=== PATIENT | female | born 2000 | race Caucasian/White ===

== ENCOUNTER 2021-07-25 14:05 | Emergency (ER) | payer BC, SELFPAY ==
[2021-07-25 14:05] VITALS: BP 136/89; PULSE 97; RESP 18; TEMP 36.5; O2SAT 100
--- NOTE | 2021-07-25 14:34 | ED.URI ---
HPI - URI/Sore Throat General Chief Complaint: Upper Respiratory Infection Stated Complaint: Congestion Time Seen by Provider: 07/25/21 14:22 Source: patient and RN notes reviewed Mode of arrival: ambulatory Limitations: no limitations History of Present Illness HPI Narrative: Patient presents today complaining of severe nasal congestion. Patient was diagnosed with COVID-19 on 07/06/2022. Reports her symptoms had improved for a while, but over the last several days her nasal congestion had significantly worsened. Associated symptoms include postnasal drip and nasal drainage. She has been taking Coricidin HBP without relief. MD elicited complaint: nasal congestion and sinus pain Related Data Home Medications Medication Instructions Recorded Confirmed L norgest/e.estradiol-e.estrad 0.15 ea PO DAILY 07/25/21 07/25/21 [Simpesse] nitrofurantoin macrocrystal 50 mg PO PRN PRN 07/25/21 07/25/21 Allergies Allergy/AdvReac Type Severity Reaction Status Date / Time No Known Allergies Allergy Verified 05/20/19 14:51 Review of Systems Review of Systems: CONSTITUTIONAL: Denies body aches, fever, chills, or sweats. EYES: Denies visual changes, redness, or discharge. ENT: Denies rhinorrhea, sore throat, or otalgia.+ Nasal congestion, postnasal drip CARDIOVASCULAR: Denies chest pain, palpitations, or edema. RESPIRATORY: Denies cough or dyspnea. GASTROINTESTINAL: Denies abdominal pain, nausea, vomiting, or diarrhea. GENITOURINARY: Denies dysuria or hematuria. SKIN: Denies rash, itching, or wounds. MUSCULOSKELETAL: Denies back pain, joint pain, or myalgia. NEUROLOGIC: Denies headache, numbness, tingling, or weakness. PSYCH: Denies depression or anxiety. [facility] Past Medical History Medical History No pertinent past medical history Social History Social History Smoking status: Never smoker Gender identity (if verbalized by the patient): Female Comments At time of signature, I have reviewed and agree with nursing past medical, surgical, social and family history unless otherwise noted. Please see nursing chart for further information. There is no relevant family history pertinent to the presenting complaint Exam Narrative: GENERAL: Well-appearing, well-nourished, and in no acute distress. HEAD: Normocephalic, atraumatic. EYES: EOMI. No redness or drainage. Conjunctivae normal. ENT: Mucous membranes pink and moist. Nares congested. Swollen nasal turbinates. No rhinorrhea. TMs normal bilaterally. Throat normal. Uvula midline. NECK: Normal AROM. Supple. No lymphadenopathy. CHEST: No respiratory distress. Clear to auscultation. HEART: Regular rate and rhythm. No murmur appreciated. Normal peripheral pulses. EXTREMITIES: Normal range of motion. No edema. SKIN: Warm, dry, no rash. Capillary refill normal. Normal skin turgor. NEURO: No focal deficits. Alert and oriented x3. Gait steady. PSYCH: Normal affect. No signs of depression or anxiety. Course Course Level of Care: Express Care Visit Vital Signs Vital signs: Vital Signs Temperature 97.7 F 07/25/21 14:05 Pulse Rate 97 07/25/21 14:05 Respiratory Rate 18 07/25/21 14:05 Blood Pressure 136/89 07/25/21 14:05 Pulse Oximetry 100 07/25/21 14:05 Temperature 97.7 F 07/25/21 14:05 Pulse Rate 97 07/25/21 14:05 Respiratory Rate 18 07/25/21 14:05 Blood Pressure 136/89 07/25/21 14:05 Pulse Oximetry 100 07/25/21 14:05 MDM - URI/Sore Throat Differential Diagnosis Differential diagnosis: Likely upper respiratory infection, sinusitis and viral infection Critical Care Time Critical Care Time Critical Care Time: No Discharge Plan Discharge Clinical Impression: Sinusitis Qualifiers: Sinusitis location: unspecified location Chronicity: acute Recurrence: non-recurrent Qualified Code(s): J01.90 - Acute sinusi
== END 2021-07-25 14:41 | disposition home or self-care (01) ==
PROVIDERS: Emergency Provider Nurse Practitioner; PCP Family Medicine Adolescent Medicine
DX: J01.90 Acute sinusitis, unspecified (principal); Z86.16 Personal history of COVID-19
CPT/HCPCS: 99213; G0463

== ENCOUNTER → 2023-06-22 13:16 | Outpatient (CLI) | payer OTHER, SELFPAY ==
--- NOTE | ~2023-06-22 | US_ITS ---
US breast RT complete 06/22/2023 13:42 Indication: Palpable right breast abnormality Procedure: Complete right breast ultrasound including all 4 quadrants in the subareolar location Comparison: No prior studies for comparison. Findings: At 10:00, 3 cm from the nipple in the area of palpable concern there is an oval circumscribed hypoech oic mass with parallel orientation, no significant posterior features or internal vascularity. This m ass measures 2 x 1.9 x 0.9 cm with some lobulations. At 12:00 near the areola there is an oval hypoec hoic 5 mm parallel oriented mass without posterior features or internal vascularity. Impression: 1: Right breast masses, most likely benign given their sonographic characteristics and patient age. BI-RADS CATEGORY 3-PROBABLY BENIGN FINDING RECOMMENDATION: 6 month follow-up Limited right breast ultrasound recommended Reviewed, dictated and finalized at location A. PLACEMENT COORDINATOR Impression: 1: Right breast masses, most likely benign given their sonographic characterist ics and patient age. BI-RADS CATEGORY 3-PROBABLY BENIGN FINDING RECOMMENDATION: 6 month follow-up Limited right breast ultrasound recommended
== END ==
PROVIDERS: PCP Nurse Practitioner; Visit Provider Nurse Practitioner
DX: N63.11 Unspecified lump in the right breast, upper outer quadrant (principal)
CPT/HCPCS: 76641

== ENCOUNTER 2023-12-28 09:39 | Outpatient (CLI) | payer OTHER, SELFPAY ==
--- NOTE | ~2023-12-28 | US_ITS ---
US breast RT limited 12/28/2023 09:57 Indication: Six-month follow-up right breast mass. Procedure: High-resolution Limited ultrasound of the right breast Comparison: Ultrasound dated 06/22/2023 Findings: There is a hypoechoic right breast mass at 10:00, 4.5 cm from the nipple which appears slig htly more lobulated and minimally increased in size compared with prior study now measuring 2.2 x 1.8 x 1.0 cm compared with 2 x 1.9 x 0.9 cm on prior examination. At 12:00, 2.5 cm from the nipple there is an oval hypoechoic 5 mm mass which is stable compared with prior exam, likely benign. Impression: 1: Minimal increased size with lobulation and the dominant right breast mass at 10:00, 4.5 cm from th e nipple. BI-RADS CATEGORY 4-SUSPICIOUS ABNORMALITY RECOMMENDATION: Ultrasound-guided right breast biopsy recommended. Reviewed, dictated and finalized at location B. Impression: 1: Minimal increased size with lobulation and the dominant right breast mass at 10:00, 4.5 cm from the nipple. BI-RADS CATEGORY 4-SUSPICIOUS ABNORMALITY RECOMMENDATION: Ultrasound-guided right breast biopsy recommended.
== END 2023-12-28 09:40 ==
LOC: MICIMG 09:40
PROVIDERS: PCP Obstetrics & Gynecology Gynecology; Visit Provider Obstetrics & Gynecology Gynecology
DX: N63.10 Unspecified lump in the right breast, unspecified quadrant (principal); R92.8 Other abnormal and inconclusive findings on diagnostic imaging of breast
CPT/HCPCS: 76642

== ENCOUNTER 2025-03-10 18:06 | Emergency (ER) | payer OTHER, SELFPAY ==
--- OUTSIDE RECORDS SUMMARY | 2023-11-10 09:18 | XMS_ITS | Continuity of Care Document ---
Author Organization [facility] Address [address] [place] [address] Phone Care Team Providers Care Link Trainer Name Role Phone Christine BALLESTEROS, JAYCE, Kirill Unavailable Unavailable Procedures Procedure Date Therapeutic Activities Manual Therapy Therapeutic Activities Manual Therapy PT Evaluation Moderate Complexity Therapeutic Activities Advance Directives Directive Yes / No Effective Date File Name No Information Encounters Encounter Description Practice Location Reason(s) For Visit Diagnoses Date Provider Providers Copied on Encounter [facility], [place], [place], [id number], tel:[phone] [place] No Information [address] [facility], [place], [place], [id number], tel:[phone] [place] No Information 4 Christine Roy. . Referring Provider: Sterling Miguel, [address] [place], [address]. tel:[phone] [facility], [place], [place], [id number], tel:[phone] [place] No Information 4 Christine Roy. . Referring Provider: Sterling Miguel, [address] [place], [address]. tel:[phone] [facility] [address], [place], [place], [id number], [place] tel:[phone] [place] No Information 4 Christine Roy. . Referring Provider: Sterling Miguel, [address] [place], [address]. tel:[phone] Family History Family Member Type Diagnosis Age At Onset No Information Payers Payer name Insurance type Covered green party ID Yi sadler(s) [facility] CI [id number] Social History Type Description Quantity Date Captured Comments Sex Female Smoking Status No Information Chief Complaint And Reason For Visit No Information Reason For Referral Reason For Referral No Information History Of Present Illness Encounter Date Complaint History Of Prese nt Illness No Information Functional Status Date Functional Assessmen t No Information Instructions Date Instruction Additional Infor mation No Information Assessments Type Assessment Date No Information Patient Care Teams Name Effective Dates (start - stop) Status Members No Information
--- OUTSIDE RECORDS SUMMARY | 2025-03-10 18:08 | XMS_ITS | Clinical Summary ---
Author Organization [facility] Address [address] [address] Care Team Providers Care Cable Tester Name Role Phone Roosevelt Guerin MD Primary Care Provider [phone] Source Comments [facility],non-owned Affiliates and Associated Physician Practices is amultiple site organization consisting of ambulatory clinics and hospital sitesin [place] and [place]. This disclosure is being madepursuant to the Care Everywhere program and may not contain all information available regarding this patient. Last updated 18.[facility] Social History Tobacco Use Types Packs/Day Years Used Date Smoking Tobacco: Never Assessed Comments Unknown Sex and Gender Information Value Date Recorded Sex Assigned at Not on file Legal Sex Female 2:51 PM CDT Gender Identity Not on file Sexual Orientation Not on file Plan of Treatment Health Maintenance Due Date Last Done Comments HIV SCREENING 2015 HPV VACCINE (1 - 3-dose series) 2015 CHLAMYDIA/GONORRHEA SCREENING 2016 HEPATITIS C SCREENING 06/24/2018 DTAP/TDAP/TD VACCINES (1 - Tdap) 2019 HEPATITIS B VACCINE (1 of 3 - 19+ 3-dose series) 2019 PAP SMEAR 2021 COVID-19 VACCINE (1 - 2023-2 5 season) 2024 DEPRESSION SCREENING 07/11/2024 INFLUENZA VACCINE (#1) 2025 ZOSTER VACCINE (1 of 2) 2050 HIB VACCINE Aged Out No longer eligi ble based on patient's age to complete this topic MENINGOCOCCAL (Group B) VACC INE SHARED DECISION-MAKING Aged Out No longer eligibl e based on patient's age to complete this topic MENINGOCOCCAL GROUPS A/C/Y/W VACCINE Aged Out No longer eligible b ased on patient's age to complete this topic PNEUMOCOCCAL VACCINE Aged Out No long er eligible based on patient's age to complete this topic Care Teams Cable Tester Relationship Specialty Start Date End Date Roosevelt Guerin MD [address] [place] [address] [address] [place] [address] PCP - General Family Medicine 12/21/17
--- OUTSIDE RECORDS SUMMARY | 2025-03-10 18:08 | XMS_ITS | Clinical Summary ---
Author Organization [facility] Address [address] [place] [address] Care Team Providers Care Factory Representative Name Role Phone Elian Mcdowell MD Primary Care Prov ider Yvonne Wilkins MD Unavailable [phone] Zulma Hathaway MD PhD Unavaila ble Radha Simms MD Unavailable [phone] Allergies No known active allergies Medications Simpesse 0.15 mg-30 mcg (84)/10 mcg (7) tablets,dose pack,3 month Take 1 tablet by mouth nightly 1 Active venlafaxine XR (EFFEXOR-XR) 150 mg 24 hr capsule Take 1 capsule (150 mg total) by mouth nightly 4 Active vitamin U35-kefwg acid 0.5-1 mg tablet Take 1 tablet by mouth daily Active nitrofurantoin monohydrate (MACROBID) 100 mg capsule TAKE 1 CAPSULE BY MOUTH NEEDED AFTER INTERCOURSE 4 Active ergocalciferol (VITAMIN D) 50,000 unit capsule Take 1 capsule (50,000 Units total) by mouth 2 (two) times a week 4 Active UNKNOWN TO PATIENT Antibiotic twice daily for uti started on 02/20/2024 in the evening 4 Active oxyCODONE-acetam inophen (PERCOCET) 5-325 mg per tabletIndication s:Pain Take 1 tablet by mouth every 4 (four) hours as needed for pain 8 tablet 4 Active Additional Information Patient not taking.Reported on 04/18/2024 docusate sodium (COLACE) 100 mg capsuleIndicatio ns:constipation Take 1 capsule (100 mg total) by mouth 2 (two) times a day with a glass of water 8 capsule 4 Active Additional Information Patient not taking.Reported on 03/27/2024 hydrOXYzine (ATARAX) 10 mg tabletIndication s:Pruritus of Skin Take 1 tablet (10 mg total) by mouth 3 (three) times a day as needed for itching 30 tablet 4 Active Additional Information Patient not taking.Reported on 03/27/2024 hydrocortisone 2.5 % ointmentIndicati ons:Skin Inflammation Apply topically 2 (two) times a day 30 g 4 Active Additional Information Patient not taking.Reported on 03/27/2024 meloxicam (MOBIC) 15 mg tablet TAKE 1 TABLET(15 MG) BY MOUTH DAILY WITH FOOD 30 tablet 4 Active Active Problems Problem Noted Date Diagnosed Date Mass of right breast 02/20/2024 Spondylolysis 03/02/2016 Surgical History Surgery Date Site/Laterality Comments FOOT SURGERY 07/11/2012 - 07/10/2013 BREAST BIOPSY 02/15/2024 Right Medical History Medical History Date Comments Anxiety Depression Urinary tract infection Mass of right breast Motion sickness Family History Medical History Relation Name Comments Breast cancer Cousin Arthritis Father Diabetes Father Hypertension Father Stroke Father Breast cancer Father's Sister Arthritis Maternal Grandfather Hypertension Maternal Grandfather Stroke Maternal Grandfather Breast cancer Maternal Grandmother Ovarian cancer Maternal Great-Grandmother Hypertension Other 1 Arthritis Other 2 Leukemia Paternal Great-Grandfather Breast cancer Paternal Great-Grandmother Relation Name Status Comments Cousin Alive Father Father's Sister Maternal Grandfather Maternal Grandmother Maternal Great-Grandmother Mother Alive Other 1 Other 2 Paternal Great-Grandfather Paternal Great-Grandmother Social History Tobacco Use Types Packs/Day Years Used Date Smoking Tobacco: Never Smokeless Tobacco: Never Tobacco Cessation:Counseling Given: Not Answered AUDIT-C Answer Date Recorded Q1: How often do you have a drink containing alc ohol? Monthly or less 04/18/2024 Q2: How many drinks containi ng alcohol do you have on a typical day when you are drinking? 1 or 2 04/18/2024 Q3: How often do you have si x or more drinks on one occasion? Never 04/18/2024 Personal Safety Answer Date Recorded Have you ever been in or are you currently in a harmful physical or emotional relationship or is someone making you feel afraid or unsafe? 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 PROCESSOR Gender Identity Not on file Sexual Orientation Not on file Obstetrics History Last Filed Vital Signs Vital Sign Reading Time Taken Comments Blood Pressure 131/87 04/18/2024 11:57 AM CDT Pulse 75 04/18/2024 11:57 AM CDT Temperature 36.7 C (98 F) 04/18/2024 11:57 AM CDT Respiratory Rate 16 04/18/2024 11:57 AM CDT Oxygen Saturation 99% 04/18/2024 11:57 AM CDT Inhaled Oxygen Concentration - - Weight 55 kg (121 lb 3.2 oz) 04/18/2024 11:57 AM CDT Height 170.2 cm (5' 7) 04/18/2024 11:57 AM CDT Body Mass Index 18.98 04/18/2024 11:57 AM CDT Plan of Treatment Health Maintenance Due Date Last Done Comments Cervical Cancer Screening 2000 Depression Screening 2000 Hepatitis C Screening 2000 DTaP/Tdap/Td Vaccine (1 - Tdap) 2011 Varicella Vaccines (1 of 2 - 13+ 2-dose series) 2013 HPV Vaccines (1 - 3-dose series) 2015 Hepatitis B Screening 2018 Regular Well Visit/Exam 18-64 2018 Covid-19 Vaccine (3 - 2023-2 5 season) 2024 08/21/2020, 07/24/2020 Influenza Vaccine (#1) 2025 04/16/2021 Pneumococcal vaccine <65 Aged Out No longer eligible based on patient's age to complete this topic Medical Devices Implanted Type Area Gang Leader Device Identifier Shelf Expiration Date Model / Serial / Lot Bard Peripheral Vascular Ultraclip Bard 17ga 10cm 2 Trigger Permanent Ultrasound [id number] - [id number] Implanted:Qty: 1 on 02/15/2024 at [facility] Right: Breast Bard [employer]ascular [id number] / / [facility] Address: [address] [place] [address] CHOICE [place] [employer] Address: [address] [place] [address] Care Teams Factory Representative Relationship Specialty Start Date End Date Elian Mcdowell MD PCP - General Family Medicine 12/07/22 Yvonne Wilkins MD [address] [place] [address] Referring Physician Gynecology 12/29/23 Zulma Hathaway MD PhD [address] [facility] [id number] [place] [address] Surgeon Surgical Oncology 01/31/24 Radha Simms MD [address] [place] [address] Surgeon Medical Oncology 02/02/24
--- NOTE | 2025-03-10 18:10 | ED.URI ---
HPI - URI/Sore Throat General Chief Complaint: Upper Respiratory Infection Stated Complaint: cold symptoms Time Seen by Provider: 03/10/25 18:10 patient presents to the [facility] with complaints of low-grade fever, headache, sore throat, nasal congestion, nasal drainage, and fatigue that began 2 days ago. Patient reports she works at [employer] and [employer] and has had several sick contacts mostly they have been seeing positive COVID-19 cases. Patient noted spouse also has similar symptoms. No medication taken for symptoms. Denies dizziness, shortness of breath, wheezing, nausea, vomiting, diarrhea difficulty swallowing. Related Data Home Medications ?Medication ?Instructions ?Recorded ?Confirmed ?Last Taken ?Type meloxicam 15 mg tablet mg 03/10/25 Unknown History nitrofurantoin macrocrystal 100 mg mg 03/10/25 Unknown History capsule Allergies Allergy/AdvReac Type Severity Reaction Status Date / Time No Known Allergies Allergy Verified 03/10/25 18:17 Review of Systems Constitutional: Constitutional: Reports as per HPI, Denies chills, Reports fatigue, Reports fever(s) and Denies weakness Eyes: Eyes: Reports no additional eye complaints ENT: Reports as per HPI, Denies vertigo, Denies dizziness, Reports nasal congestion and Reports sore throat Cardiovascular: Cardiovascular: Reports no additional cardiovascular complaints Respiratory: Respiratory: Reports as per HPI, Reports chest congestion, Reports cough, Denies dyspnea and Denies wheezing Gastrointestinal: Gastrointestinal: Reports as per HPI, Denies abdominal pain, Denies diarrhea, Denies nausea and Denies vomiting Genitourinary: Genitourinary: Reports no additional female genitourinary complaints Musculoskeletal: Musculoskeletal: Reports as per HPI and Reports myalgias Integumentary/Breasts: Skin/Breast: Reports as per HPI, Denies erythema and Denies rash Neurologic: Reports as per HPI, Reports headache(s), Denies focal weakness and Denies weakness Psychiatric: Psychiatric: Reports no additional psychiatric complaints Endocrine: Endocrine: Reports no additional endocrine complaints Hematologic/Lymphatic: Hematologic/Lymphatic: Reports no additional hematologic/lymphatic complaints Allergic/Immunologic: Allergic/Immunologic: Reports no additional allergic/immunologic complaints [facility] Past Medical History Medical History (Updated 03/10/25 @ 18:38 by GRZEGORZ RamosC) Osteophyte, left foot Surgery 2012 No pertinent past medical history Surgical History Surgical History (System 08/25/21 @ 15:32 by Bianka Amaya) H/O foot surgery Family History Family History (Updated 04/29/22 @ 12:50 by Patsy Simmons MA) Father Depression Suicide Diabetes mellitus Glaucoma Suicide Mother Depression Anxiety Grandparent Myasthenia gravis Grandparent Cerebrovascular accident Social History Social History (Updated 12/02/22 @ 15:21 by Que Lawler OIL DEVELOPER) Smoking status: Never smoker Second hand tobacco smoke exposure: Yes Alcohol intake: never Substance use: never Substance use type: does not use Lack of Transportation: No Lack of Food: Never True Current Housing: I Have Housing Concerned About Future Housing: No Difficulty Paying Gas/Electric Bills: No Difficulty Paying for Meds: No Currently Unemployed: No Education: Bachelor's Degree Difficulty w/ Childcare or Family Care: No Living arrangements: with family Occupation/Education: occupation 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 Gender identity (if verbalized by the patient): Female Sexual Orientation (if Verbalized by the Patient): Straight or Heterosexual Spiritual care concerns: No Agree to blood products: Yes Exam Const: General: healthy appearing and no acute distress Nutritional Appearance: well nourished Orientation/consciousness: patient oriented x3 Limitations: no limitations HENMT: Head: normal to inspection Ears: external ears normal and TM's normal bilaterally Face/Nose/Sinus: Normal external nose present and Normal nares present Face and sinus: normal facial exam and sinuses nontender Mouth: Yes Normal oral and palatal mucosa present, Yes lip normal and Yes moist mucous membranes Throat: posterior oropharynx abnormal ( Minimal erythema noted no edema or exudate) Other: nasal congestion noted Neck: Neck: normal visual inspection and no lymphadenopathy Resp: Effort & Inspection: normal respiratory effort Auscultation: clear to auscultation bilaterally Other: dry cough noted Cardio: Rate: regular rate Rhythm: regular rhythm Skin: General skin exam: normal color Rashes: no rashes Wounds: no wounds Neuro: General: patient oriented x3 Cranial nerves: Yes Nystagmus not present Speech: normal speech Gait exam (Neuro): Normal gait present Psych: Mental Status: mental status grossly normal Affect: normal affect Attitude: cooperative Course Course Level of Care: Express Care Visit Vital Signs Vital signs: Vital Signs Temperature 97.1 F L 03/10/25 18:17 Pulse Rate 83 03/10/25 18:17 Respiratory Rate 18 03/10/25 18:17 Blood Pressure 131/91 H 03/10/25 18:17 Pulse Oximetry 100 03/10/25 18:17 Oxygen Delivery Room Air 03/10/25 18:17 Temperature 97.1 F L 03/10/25 18:17 Pulse Rate 83 03/10/25 18:17 Respiratory Rate 18 03/10/25 18:17 Blood Pressure 131/91 H 03/10/25 18:17 Pulse Oximetry 100 03/10/25 18:17 Oxygen Delivery Room Air 03/10/25 18:17 MDM - URI/Sore Throat MDM Narrative Medical decision making narrative: patient requested COVID flu testing. Declines strep testing while in clinic. The patient was evaluated by myself in the [facility] care. History is obtained from patient who is an independent historian and physical exam was performed. Available medical records were reviewed at this time. Exam findings show no acute concerns or changes; patient is non-toxic appearing and is in no distress. Patient is appropriate for outpatient treatment and follow-up. I have evaluated and discussed social determinants of health with the patient that could potentially impact subsequent diagnosis and treatment plans. Differential diagnosis and treatment plan were discussed with the patient. Patient agrees with discussion and after shared medical decision making agrees with plan of care. All questions were answered to the patient's satisfaction. Differential Diagnosis Differential diagnosis: Likely upper respiratory infection, otitis media, sinusitis, viral infection, influenza and pharyngitis Medical Records Attestation: I reviewed the patient's medical records. Lab Data Attestation: I reviewed the patient's lab results. Lab results narrative: negative COVID, negative flu Discharge Plan Discharge Clinical Impression: Upper respiratory infection Patient Disposition: Home Condition: Stable Instructions: Antibiotic Form, Upper Respiratory Infection (ED), Cold Symptoms (ED) Additional Instructions: Viral illness may last between 7-12days; antibiotic is NOT recommended at this time. Recommend antihistamine such as Benadryl at night time and Claritin/Zyrtec/Cinthya during the day. Also using steroid nasal spray like Flonase can help with symptoms and congestion. Using sudafed for significant congestion will also give some relief. Cough syrup may cause drowsiness; avoid driving or take it at night time. Use inhaler as needed for cough, wheezing, shortness of breath or chest tightness. Also, recommend symptomatic treatment includes: rest, fluids, increase humidity of the air at home. Recommend Acetaminophen or nonsteroidal anti-inflammatory agents(NSAIDs) as directed in the bottle to reduce fever and/pain/headache. Avoid smoking/second-hand smoke. Limit visits to areas with large crowds. 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 Please schedule a followup visit with your personal physician for further evaluation and treatment within 3-5days. Including recheck and discussion of your blood pressure. If your symptoms persist, change or worsen significantly before you can contact your personal physician then please, without delay, go to the emergency department for further evaluation. Patient Language: Bahraini Prescriptions: No Action meloxicam 15 mg tablet nitrofurantoin macrocrystal 100 mg capsule venlafaxine 150 mg capsule,extended release 24hr 150 mg PO DAILY Qty: 30 2RF Follow-up/Referrals: Luz Elena Gonzalez RD, LDN [Primary Care Provider, Nursing] Stand Alone Forms: Work/School Release IP Time of Disposition: 18:37
[2025-03-10 18:17] VITALS: BP 131/91; PULSE 83; RESP 18; TEMP 36.2; O2SAT 100
[2025-03-10 18:39] LABS: EDCOVIDSCREEN Negative (Negative)
[2025-03-10 18:39] LABS: EDINFLUASCREEN Negative (Negative); EDINFLUBSCREEN Negative (Negative)
== END 2025-03-10 18:40 | disposition home or self-care (01) ==
PROVIDERS: Emergency Provider Nurse Practitioner Family
DX: J06.9 Acute upper respiratory infection, unspecified (principal); Z20.822 Contact with and (suspected) exposure to COVID-19
CPT/HCPCS: 87426; 87804; 99212; G0463

== ENCOUNTER 2025-04-12 09:28 | Outpatient (CLI) | payer OTHER, SELFPAY ==
--- NOTE | ~2025-04-12 | DEXA_ITS ---
Bone Density Report Name: BRYCE NORTH Age: 24 Sex: Female Ethnicity: White Date of : 2000 Indication: prior fracture; anorexia or bulimia; Referring Provider: ISIAH WESTBROOK Study: Bone densitometry was performed. Exam Date: April 12, 2025 Accession number: [id number] Bone Density: Region BMD T-score Z-score Classification AP Spine(L1-L4) 0.884 -1.4 Femoral Neck (Left) 0.852 0.0 Total Hip (Left) 0.895 -0.4 Femoral Neck (Right) 0.891 0.4 Total Hip (Right) 0.897 -0.4 Total Hip Mean 0.896 -0.4 World Health Organization criteria for BMD impression classify patients as: Normal (T-score at or above -1.0), Osteopenia (T-score between -1.0 and -2.5), or Osteoporosis (T-score at or below -2.5). 10-year Fracture Risk: FRAX not reported because: Premenopausal woman Prior hip or vertebral fracture Clinical Information Provided by Patient: Have had a previous hip or vertebral fracture Has had a low trauma fracture Has used the following medications: Vitamin D Has the following medical conditions: Anorexia or Bulimia Patient maximum height was 67 No regular weight bearing exercise Drinks caffeinated beverages Onset of menses at age 13 Premenopausal Number of children 0 Impression: The patient's bone mass is within expected range for age, gender and ethnicity. The patient has risk factors, including: previous fracture. Discussion: BONE DENSITY IS WITHIN EXPECTED LIMITS FOR AGE, SEX AND RACE. HISTORY OF FRACTURE. Although there is a predictable association between low bone mass and the risk of osteoporotic fractures in untreated postmenopausal women, there are no data relating bone density and fracture risk in younger women. The ISCD position is that the diagnosis of ?low bone mass? or ?osteoporosis? should not be made on densitometric criteria alone. WHO criteria only apply to postmenopausal women. Further evaluation should be considered given the patient's history of fracture at a young age. The patient should follow a healthful lifestyle (good nutrition with adequate calcium and vitamin D, and appropriate weight-bearing exercise). Follow-Up: Consider a repeat BMD and Vertebral Fracture Assessment (VFA) exam in 2 years or sooner if medically necessary, to reassess this patient's status. Reported by: HARPREET on 04/12/2025 9:49:00 AM. Reviewed, dictated and finalized at location A.
== END 2025-04-12 09:29 | disposition home or self-care (01) ==
LOC: MICIMG 09:29
PROVIDERS: PCP Nurse Practitioner Family; Visit Provider Nurse Practitioner Family
DX: M48.46XA Fatigue fracture of vertebra, lumbar region, initial encounter for fracture (principal)
CPT/HCPCS: 77080

== ENCOUNTER 2025-05-16 10:40 | Outpatient (CLI) | payer OTHER, SELFPAY ==
--- NOTE | ~2025-05-16 | US_ITS ---
EXAMINATION: US pelvic complete w TV INDICATION: Amenorrhea Comparison:No prior studies for comparison. TECHNIQUE: Multiple transabdominal and endovaginal sonographic images of the pelvis performed. FINDINGS: The uterus measures 6.6 x 3.4 x 3.4 cm. The endometrial complex measures 4. The ovaries are not well visualized due to bowel gas. There is no free fluid in the pelvis. There are no abnormal masses seen on either side. IMPRESSION: 1. Unremarkable pelvic ultrasound. Reviewed, dictated and finalized at location O. 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
== END 2025-05-16 10:41 | disposition home or self-care (01) ==
LOC: GOSHIMG 10:41
PROVIDERS: PCP Nurse Practitioner Family; Visit Provider Obstetrics & Gynecology Gynecology
DX: N91.2 Amenorrhea, unspecified (principal)
CPT/HCPCS: 76830; 76856